=== PATIENT | female | born 1980 | race Caucasian/White ===

== ENCOUNTER 2020-06-20 12:58 | Emergency (ER) | payer OTHER, BC, SELFPAY ==
--- NOTE | ~2020-06-20 | XR_ITS ---
EXAMINATION: XR lumbar spine 2-3V DATE: 06/20/2020 14:18 INDICATION: Right-sided low back pain. TECHNIQUE: 3 views of lumbar spine were obtained. COMPARISON: None. FINDINGS: There is 5 degrees dextrocurvature of lumbar spine. Vertebral body heights are normal. Ther e is mildly decreased disc height at L4-L5 and L5 and S1. The facet joints are unremarkable. Calcific ations in the pelvis are likely phleboliths. There are stones in the kidneys. IMPRESSION: 1. Mild lumbar spondylosis. 2. Kidney stones. Reviewed, dictated and finalized at location A.
[2020-06-20 13:28] VITALS: BP 145/84; PULSE 77; RESP 14; TEMP 37.1; O2SAT 99
--- NOTE | 2020-06-20 13:57 | ED.GENADULT ---
HPI - General Adult General Chief complaint: Back Pain/Injury Stated complaint: Lower back pain Time Seen by Provider: 06/20/20 13:57 Source: patient and RN notes reviewed Mode of arrival: ambulatory Limitations: no limitations History of Present Illness HPI narrative: 40-year-old female presents with complaints of diffused lower back pain for 1 day. Tylenol (last @ noon) and Ibuprofen (last at 05:00) with little to no relief. Luisa says she was bending over a patient's bed (waist high) cleaning a patient up when she started having lower back pain after straighten up, unknown to any injury occurring. Denies new injuries or falls. Pain radiates to RT posterior thigh. Denies numbness or tingling. Denies fever or chills. No upper or lower extremity pain or weakness. Exacerbating factors consist of prolong standing and bending. Denies problems with urinating or having a bowel movement, LBM this morning per patient and normal. No flank pain or hematuria or dysuria. The patient reports she have not been diagnosed with COVID-19, tested weekly at work and NEGATIVE (last 06/18/20. The patient reports she is not waiting for the results of a COVID-19 lab test. The patient reports she do not have fever, chills, weakness, or fatigue. The patient reports she do not have a new or worsening cough or shortness of breath. Denies chest pain. The patient reports she do not have any rhinorrhea, congestion, sore throat, nausea, vomiting, abdominal pain, and diarrhea. Tolerating po intake well. Denies recent traveling. Denies concerns for COVID-19 or exposures been home with limited outdoor exposure except for essential household needs, work, and return home. At this time, patient is not suspected of having COVID-19. Some parts of this dictation were generated by voice recognition software and may contain typographical and/or grammatical inaccuracies. Related Data Home Medications Medication Instructions Recorded Confirmed alprazolam [Xanax] 06/20/20 Allergies Allergy/AdvReac Type Severity Reaction Status Date / Time ceftriaxone Allergy Fainting Verified 06/20/20 13:44 Review of Systems Review of Systems: Narrative: CONSTITUTIONAL: Denies fever, chills, sweats. EYES: Denies visual changes, redness, discharge. ENT: Denies rhinorrhea, congestion, sore throat, otalgia. CARDIOVASCULAR: Denies chest pain, palpitations, edema. RESPIRATORY: Denies dyspnea, wheezing, cough. GASTROINTESTINAL: Denies abdominal pain, nausea, vomiting, diarrhea. GENITOURINARY: Denies dysuria, hematuria, abnormal discharge. SKIN: Denies rash or itching. MUSCULOSKELETAL: Complains of diffused lower back pain. Denies joint pain or myalgia. NEUROLOGIC: Denies numbness or focal weakness. PSYCHIATRIC: Denies anxiety or depression. All systems reviewed & are unremarkable except as noted in HPI and below. [facility] Past Medical History Medical History (Updated 06/21/20 @ 00:00 by Fariba Preston) Kidney stones Surgical History Surgical History (Updated 06/20/20 @ 16:12 by KALYAN Cancino) History of endometrial ablation History of tonsillectomy Family History Family History (Updated 06/20/20 @ 16:13 by KALYAN Cancino) Father Unknown family medical history Mother Depression Throat cancer Social History Social History (Updated 06/20/20 @ 16:14 by KALYAN Cancino) Smoking status: Never smoker Second hand tobacco smoke exposure: No Alcohol intake: never Substance use: never Substance use type: does not use Living arrangements: with family Occupation/Education: occupation Gender identity (if verbalized by the patient): Female Comments At time of signature, agree with nurse past medical, surgical, social, and family history. There is no relevant family history pertinent to the presenting complaint. Exam Narrative: Exam Narrative: GENERAL: This is a well-nourished, well-developed patient, in no appa
[2020-06-20] MEDS: KETOROLAC (*BKC) 60 MG/2 ML VIAL IM (14:21)
== END 2020-06-20 14:45 | disposition home or self-care (01) ==
PROVIDERS: Emergency Provider Nurse Practitioner Family; PCP Internal Medicine
DX: M47.816 Spondylosis without myelopathy or radiculopathy, lumbar region (principal); M54.41 Lumbago with sciatica, right side
CPT/HCPCS: 72100; 96372; 99213; G0463; J1885